=== PATIENT | female | born 2000 | race African-American/Black ===

== ENCOUNTER 2021-12-23 02:28 | Emergency (ER) | payer OTHER ==
[~2021-12-23] VITALS: Ht 170.2 cm; Wt 59.0 kg
[2021-12-23 03:07] LABS: URINE BILIRUBIN NEGATIVE (Negative); URINE BLOOD 1+ (Negative); URINE CLARITY CLEAR; URINE COLOR YELLOW; URINE GLUCOSE-RANDOM NEGATIVE (Negative); URINE KETONES NEGATIVE (Negative); URINE LEUKOCYTES NEGATIVE (Negative); URINE NITRITE NEGATIVE (Negative); URINE PROTEIN NEGATIVE (Negative); URINE UROBILINOGEN 0.2 E.U./dl (0.2-1.0)
[2021-12-23 03:43] LABS: CASTS None Seen /LPF (None Seen); SQUAMOUS >10 Many /LPF (0-3)
[2021-12-23 03:44] LABS: URINE RBC 3-10 Few /HPF (0-2); URINE WBC 0-5 Rare /HPF (0-5)
[2021-12-23 03:45] LABS: BACTERIA None Seen /HPF (None Seen); CRYSTALS None Seen /LPF (None Seen)
[2021-12-23 04:22] LABS: HEMATOCRIT 36.9 % (37.0-47.0); HEMOGLOBIN 12.6 gm/dL (12.0-15.0); MCH 30.6 pg (26.0-34.0); MCHC 34.1 g/dL (28.0-37.0); MCV 89.7 fL (80.0-100.0); MPV 7.4 fl. (7.2-11.1); RBC 4.11 mil/uL (4.20-5.00); RDW-CV 12.9 % (10.5-14.5); WBC 9.6 thou/uL (4.0-11.0)
[2021-12-23 04:37] LABS: CALCIUM 8.2 mg/dL (8.5-10.1); CREATININE 0.9 mg/dL (0.6-1.3); POTASSIUM 3.7 mmol/L (3.5-5.1)
[2021-12-23 06:00] VITALS: BP 128/68
== END 2021-12-23 06:01 | disposition home or self-care (01) ==
LOC: M.ERS 02:28
PROVIDERS: Personal Emergency Response Attendant
DX: N20.0 Calculus of kidney (principal); K38.1 Appendicular concretions; N83.201 Unspecified ovarian cyst, right side; N83.202 Unspecified ovarian cyst, left side